=== PATIENT | female | born 1970 | race Caucasian/White ===

== ENCOUNTER 2020-02-25 20:29 | Outpatient (CLI) | payer MEDICARE | END 2020-02-25 20:30 | disposition home or self-care (01) | LOC: COV 20:29 | PROVIDERS: ATTEND Family Medicine | DX: Z20.828 Contact with and (suspected) exposure to other viral communicable diseases (principal) ==

== ENCOUNTER 2020-05-27 07:00 | Outpatient (CLI) | payer MEDICARE | END 2020-05-27 23:59 | disposition home or self-care (01) | LOC: COV 07:00 | PROVIDERS: ATTEND Family Medicine | DX: M79.10 Myalgia, unspecified site (principal); R53.83 Other fatigue; R09.81 Nasal congestion; J34.89 Other specified disorders of nose and nasal sinuses; Z20.822 Contact with and (suspected) exposure to COVID-19 ==

== ENCOUNTER 2020-06-16 19:23 | Emergency (ER) | payer OTHER, MEDICARE ==
--- NOTE | 2020-06-16 22:26 | XRAY Report ---
PROCEDURE: Wrist 4 View LT INDICATIONS: Trauma TECHNIQUE: 3 views of the wrist were acquired. COMPARISON: None FINDINGS: Bones: No fractures or dislocations. No suspicious bony lesions. Scaphoid view: No fracture Soft tissues: No suspicious soft tissue calcifications. IMPRESSION: Normal left wrist and scaphoid. Reviewed by: Eric Islas on 06/16/2020 10:25 PM PDT Approved by: Eric Islas on 06/16/2020 10:25 PM PDT Station ID: [id number]
--- NOTE | 2020-06-16 22:38 | ED Physician Documentation ---
History of Present Illness - Stated complaint Stated Complaint: LT WRIST INJURY - Chief complaint Chief Complaint: Trauma Ext - History obtained from History obtained from: Patient - Additonal information Additional information: 49-year-old woman Presents with left wrist clicking and pain after catching a heavy piece of mechanical equipment in her hands at work today. She states that initially she had only mild pain that has been constant, progressively worsening as she continued to range her wrist over the course of the day so that it is moderate severity at this point. Nonradiating, worse with range of motion, aching quality associated with clinic. No other injuries. Also with tingling to the fingertips when she fully flexes the wrist. Review of Systems Musculoskeletal: reports: Extremity pain, Joint pain. denies: Extremity swelling PD PAST MEDICAL HISTORY - Past Medical History Past Medical History: Yes Cardiovascular: None Respiratory: None Neuro: CVA Endocrine/Autoimmune: None GI: Ulcerative colitis RESEARCH ANALYST: Other : None HEENT: None Psych: None Musculoskeletal: Chronic back pain Derm: None Other Past Medical History: Several Strokes - Past Surgical History Past Surgical History: Yes General: Cholecystectomy Ortho: Hip replacement, Shoulder arthroplasty, Spine surgery /RESEARCH ANALYST: Hysterectomy, Oophrectomy - Present Medications Home Medications: Ambulatory Orders Medication Instructions Recorded Confirmed Diclofenac Sodium [Arthritis Pain 50 gm TP 06/16/20 Reliever] Tizanidine HCl [Zanaflex] 4 mg PO 06/16/20 06/16/20 oxyCODONE [Roxicodone] 5 mg PO Q4HR PRN 06/16/20 06/16/20 - Allergies Allergies/Adverse Reactions: Allergies Allergy/AdvReac Type Severity Reaction Status Date / Time acetaminophen [From Vicodin] Allergy Anaphylaxis Verified 06/16/20 19:28 bee venom protein (honey bee) Allergy Anaphylaxis Verified 06/16/20 19:28 hydrocodone [From Vicodin] Allergy Anaphylaxis Verified 06/16/20 19:28 NSAIDS (Non-Steroidal Allergy Anaphylaxis Verified 06/16/20 19:28 Anti-Inflamma - Social History Does the pt smoke?: Yes Smoking Status: Current every day smoker Does the pt drink ETOH?: Yes Does the pt have substance abuse?: No Substance Use and Type: CBD oil / Products - Immunizations Immunizations are current?: Yes - POLST Patient has POLST: No PD ED PE NORMAL - Vitals Vital signs reviewed: Yes - General General: Alert and oriented X 3, No acute distress, Well developed/nourished - Derm Derm: Normal color, Warm and dry - Extremities Extremities: No deformity, Other (Left wrist tender with range of motion. audible clicking with flexion of the wrist. 2+ radial pulse. Normal capillary refill and sensation. No bony tenderness.) Results - Vitals Vitals: Vital Signs - 24 hr 06/16/20 19:29 Temperature 36.6 C Heart Rate 84 Respiratory 19 Rate Blood Pressure 148/90 H O2 Saturation 100 Oxygen O2 Source Room air PD MEDICAL DECISION MAKING - ED course ED course: 49-year-old woman presents with left wrist injury at work. L&I form filled out. We discussed conservative measures of RICE. Patient was placed in a splint after confirming no fracture on x-ray. She will follow up with orthopedics in 1 week. Departure - Departure Disposition: 01 Home, Self Care Clinical Impression: Wrist pain Condition: Good Instructions: ED RICE Follow-Up: Leno Miguel MD [Provider Admit Priv/Credential] - Comments: You were seen in the emergency department for wrist pain and clicking. Please follow-up with orthopedics in 1 week if you do not have improvement. Your x-ray was normal, but it can sometimes miss injuries. Wear your splint in the meantime and do the ice, rest, elevation that we discussed. Forms: Activity restrictions
[2020-06-16 22:43] VITALS: BP 143/78
--- OUTSIDE RECORDS SUMMARY | 2020-06-17 03:26 | EXTERNAL MEDICAL SUMMARY RPT | Continuity of Care Document ---
:1970 Demographics Phone Unavailable Preferred Language Unknown Marital Status Unknown Gnosticist Affiliation Unknown Race Unknown Ethnic Group Unknown Author Organization [facility] Address [address] [phone] Phone Care Team Providers Name Role Phone SYSTEMS TECHNICIAN Unavailable Unavailable Registrar Unavailable Unavailable Problems date description facility 20200415 Alcohol intake All 20200415 Alcohol use All [id number] Current every day smoker All 20200415 Patient Education All 20200415 Recurrent sinusitis All 20200415 Total score? All 02409559 Chronic sinusitis, unspecified All 20200415 Details of drug misuse behavior All Medications date description facility 20200415 ACETAMINOPHEN CAPS All [id number] [facility] All 20200415 AMOXICILLIN-POT CLAVULANATE All 20200415 FEXOFENADINE HCL All [id number] PSEUDOEPHEDRINE [facility]CL All 71986038 OXYCODONE-ACETAMINOPHEN All 59990176 OXYCODONE-ACETAMINOPHEN All 85858927 PSEUDOEPHEDRINE HCL All 00771623 [facility] All [id number] ACETAMINOPHEN CAPS All 71446258 AMOXICILLIN-POT CLAVULANATE All 92048280 FEXOFENADINE HCL All 58719650 ACETAMINOPHEN CAPS All 64658722 [facility]UD[facility] All 76604642 AMOXICILLIN-POT CLAVULANATE All 68085770 FEXOFENADINE HCL All 30988028 PSEUDOEPHEDRINE HCL All 01126012 OXYCODONE-ACETAMINOPHEN All 70336116 OXYCODONE-ACETAMINOPHEN All 06450802 PSEUDOEPHEDRINE HCL All 71288879 [facility] All 31734921 ACETAMINOPHEN CAPS All 57947280 AMOXICILLIN-POT CLAVULANATE All 13542846 FEXOFENADINE HCL All Vital Signs date measurement value source 20200415 BMI 30.35 kg/m2 20200415 BP_diastolic 84 mm[Hg] 20200415 BP_systolic 131 mm[Hg] 20200415 heart_rate 96 /min 20200415 height_metric 175.26 cm 20200415 height_standard 69 in 20200415 respiration_rate 14 /min 20200415 temperature_metric 36.94 C 20200415 temperature_standard 98.5 F 20200415 weight_metric 92.9 kg 20200415 weight_standard 204.8 lb 20200415 BMI 30.35 kg/m2 20200415 BP_diastolic 84 mm[Hg] 20200415 BP_systolic 131 mm[Hg] 20200415 heart_rate 96 /min 20200415 height_metric 175.26 cm 20200415 height_standard 69 in 20200415 respiration_rate 14 /min 20200415 temperature_metric 36.94 C 20200415 temperature_standard 98.5 F 20200415 weight_metric 92.9 kg 20200415 weight_standard 204.8 lb Social History date description facility [id number]
--- OUTSIDE RECORDS SUMMARY | 2020-06-17 03:27 | EXTERNAL MEDICAL SUMMARY RPT | Continuity of Care Document ---
:1970 Demographics Phone Unavailable Preferred Language Unknown Marital Status Unknown Jain Affiliation Unknown Race Unknown Ethnic Group Unknown Author Organization [facility] Address [address] [phone] Phone Care Team Providers Name Role Phone COUNTY EXTENSION AGENT Unavailable Unavailable Registrar Unavailable Unavailable Problems date description facility 20200415 Alcohol intake All 20200415 Alcohol use All 75096328 Current every day smoker All 20200415 Patient Education All 20200415 Recurrent sinusitis All 20200415 Total score? All 66516741 Chronic sinusitis, unspecified All 20200415 Details of drug misuse behavior All Medications date description facility 20200415 ACETAMINOPHEN CAPS All 89469682 [facility]UD[facility] All 20200415 AMOXICILLIN-POT CLAVULANATE All 20200415 FEXOFENADINE HCL All 58474416 PSEUDOEPHEDRINE HCL All 80112654 OXYCODONE-ACETAMINOPHEN All 78648333 OXYCODONE-ACETAMINOPHEN All 87732645 PSEUDOEPHEDRINE HCL All 23158875 [facility] All 88328506 ACETAMINOPHEN CAPS All 59124237 AMOXICILLIN-POT CLAVULANATE All 00395668 FEXOFENADINE HCL All 27224791 ACETAMINOPHEN CAPS All 91885693 [facility] All 12151504 AMOXICILLIN-POT CLAVULANATE All 33276066 FEXOFENADINE HCL All 58029890 PSEUDOEPHEDRINE HCL All 88342100 OXYCODONE-ACETAMINOPHEN All 84227628 OXYCODONE-ACETAMINOPHEN All 24446928 PSEUDOEPHEDRINE HCL All 71194125 [facility] All 91713331 ACETAMINOPHEN CAPS All 37546425 AMOXICILLIN-POT CLAVULANATE All 66428979 FEXOFENADINE HCL All Vital Signs date measurement [...] 204.8 lb Social History date description facility [id number]
== END 2020-06-16 22:40 | disposition home or self-care (01) ==
LOC: ED 19:23
DX: S69.92XA Unspecified injury of left wrist, hand and finger(s), initial encounter (principal); M25.532 Pain in left wrist; X50.1XXA Overexertion from prolonged static or awkward postures, initial encounter; Y93.89 Activity, other specified; Y99.0 Civilian activity done for income or pay; F17.200 Nicotine dependence, unspecified, uncomplicated
CPT/HCPCS: 1040M; 73110; 99281; 99283

== ENCOUNTER 2020-08-17 13:42 | Outpatient (CLI) | payer OTHER, MEDICARE ==
--- NOTE | 2020-08-17 14:47 | XRAY Report ---
PROCEDURE: Cervical Spine 2 View INDICATIONS: ARTHRITIS, CERVICAL SPINE TECHNIQUE: 3 view(s) of the cervical spine were acquired. COMPARISON: None. FINDINGS: Bones: No fractures or dislocations to the C7 level. Anterior fusion of C5-C7. Loss of normal cervic al lordosis. Mild grade 1 anterolisthesis of C4 on C5. The lateral masses of C1 appear intact on the odontoid view. No suspicious bony lesions. Soft tissues: No prevertebral soft tissue swelling. IMPRESSION: Post surgical sequelae. No acute fracture. No osseous lesion. If symptoms and/or clinica l suspicion for pathology continue, further assessment with repeat plain films, or advanced imaging ( e.g., CT, MRI, or bone scan) is recommended for further assessment. Reviewed by: Liu Medina MD on 08/17/2020 2:46 PM PDT Approved by: Liu Medina MD on 08/17/2020 2:46 PM PDT Station ID: [id number]
--- NOTE | 2020-08-17 14:47 | XRAY Report ---
PROCEDURE: Shoulder 2 View RT INDICATIONS: SHOULDER PAIN, RIGHT TECHNIQUE: 3 views of the shoulder were acquired. COMPARISON: None. FINDINGS: Bones: No fractures or dislocations. No suspicious bony lesions. Visualized ribs appear intact. M oderate joint space narrowing and periarticular osteophyte formation at the acromioclavicular and gle nohumeral joints. Soft tissues: No suspicious soft tissue calcifications. IMPRESSION: 1. Acromioclavicular and glenohumeral joint osteophytes arthritis. Next line 2. No acute fracture. No osseous lesion. If symptoms and/or clinical suspicion for pathology continue , further assessment with repeat plain films, or advanced imaging (e.g., CT, MRI, or bone scan) is re commended for further assessment. Reviewed by: Liu Medina MD on 08/17/2020 2:46 PM PDT Approved by: Liu Medina MD on 08/17/2020 2:46 PM PDT Station ID: [id number]
== END 2020-08-17 23:59 | disposition home or self-care (01) ==
LOC: DI.N 13:42
PROVIDERS: ATTEND Family Medicine
DX: Z98.1 Arthrodesis status (principal); M19.011 Primary osteoarthritis, right shoulder

== ENCOUNTER 2021-04-16 10:02 | Outpatient (CLI) | payer MEDICARE, OTHER ==
--- NOTE | 2021-04-16 10:42 | XRAY Report ---
PROCEDURE: Shoulder 3 View RT INDICATIONS: OVERUSE DISORDER OF SOFT TISSUES, RIGHT TECHNIQUE: 4 views of the shoulder were acquired. COMPARISON: Right shoulder radiographs 08/17/2020. FINDINGS: Bones: No fractures or dislocations. No suspicious bony lesions. Moderate degenerative change at t he before meals and glenohumeral joints, not significantly changed. Visualized ribs appear intact. AC DF. Thoracic spine thecal leads. Thoracic spine scoliosis. Soft tissues: No suspicious soft tissue calcifications. Small calcifications near the rotator cuff insertion. IMPRESSION: Moderate right shoulder DJD. Suspect calcific tendinitis. Reviewed by: Mack Singh MD on 04/16/2021 10:40 AM [facility] Approved by: Mack Singh MD on 04/16/2021 10:40 AM PST Station ID: [id number]
== END 2021-04-16 10:03 | disposition home or self-care (01) ==
LOC: DI.N 10:02
PROVIDERS: ATTEND Physician Assistant
DX: M19.011 Primary osteoarthritis, right shoulder (principal); M75.31 Calcific tendinitis of right shoulder